=== PATIENT | male | born 1980 | race Caucasian/White ===

== ENCOUNTER 2018-07-10 23:19 | Emergency (ER) | payer SELFPAY ==
[2018-07-11] MEDS ORDERED: LIDOCAINE 1% INJ-PF (10 MG/ML) 30 ML SDV INJ ONE (01:06)
[2018-07-11] MEDS ORDERED: LIDOCAINE 4%/TETRACAINE 0.5%/EPI 0.18% 5 ML TOPICAL SOLN TOP ONE (01:07)
[2018-07-11] MEDS ORDERED: PROMETHAZINE HCL 25 MG TABLET PO ONE (01:07)
[2018-07-11] MEDS ORDERED: OXYCODONE-ACETAMINOPHEN 5-325 MG TABLET PO ONE (01:07)
--- NOTE | 2018-07-11 01:08 | ER Document Report ---
ED Skin Rash/Insect Bite/Abscs - General Chief Complaint: Abscess Stated Complaint: ABCESS ON NECK Time Seen by Provider: 07/11/18 00:58 Notes: Patient is a 37-year-old male that comes emergency department for chief complaint of an abscess to the back of his neck on the left side. He states it started out most like a pimple, he states he will his girlfriend missed visit and that started getting worse, he states after became swollen he tried to open it with a razor blade prior to arrival but then the pain became severe and he became worried. He denies fever or chills, denies history of the same. He denies diabetes or IV drug abuse. TRAVEL OUTSIDE OF THE [place] IN LAST 30 DAYS: No - Related Data Allergies/Adverse Reactions: No Known Allergies Allergy (Unverified 07/11/18 01:17) Past Medical History - General Information source: Patient - Social History Smoking Status: Never Smoker Drug Abuse: None Lives with: Family Family History: Reviewed & Not Pertinent Surgical Hx: Negative - Immunizations Immunizations up to date: Yes Hx Diphtheria, Pertussis, Tetanus Vaccination: Yes Review of Systems - Review of Systems Constitutional: No symptoms reported EENT: No symptoms reported Cardiovascular: No symptoms reported Respiratory: No symptoms reported Gastrointestinal: No symptoms reported Genitourinary: No symptoms reported Male Genitourinary: No symptoms reported Musculoskeletal: No symptoms reported Skin: See HPI Hematologic/Lymphatic: No symptoms reported Neurological/Psychological: No symptoms reported Physical Exam - Vital signs Vitals: Temp Pulse Resp BP Pulse Ox 97.4 F 103 H 18 134/84 H 98 07/10/18 23:29 07/10/18 23:29 07/10/18 23:29 07/10/18 23:29 07/10/18 23:29 - Notes Notes: GENERAL: Alert, interacts well. No acute distress. HEAD: Normocephalic, atraumatic. EYES: Pupils equal, round, and reactive to light. Extraocular movements intact. ENT: Oral mucosa moist, tongue midline. NECK: Full range of motion. Supple. Trachea midline. LUNGS: Clear to auscultation bilaterally, no wheezes, rales, or rhonchi. No respiratory distress. HEART: Regular rate and rhythm. No murmur ABDOMEN: Soft, non-tender. Non-distended. Bowel sounds present in all 4 quadrants. EXTREMITIES: Moves all 4 extremities spontaneously. No edema, normal radial and dorsalis pedis pulses bilaterally. No cyanosis. BACK: no cervical, thoracic, lumbar midline tenderness. No saddle anesthesia, normal distal neurovascular exam. NEUROLOGICAL: Alert and oriented x3. Normal speech. [cranial nerves II through XII grossly intact]. PSYCH: Normal affect, normal mood. SKIN: Warm, dry, normal turgor. There is an abscess noted over the posterior neck on the left side at the base of the neck, this is indurated, fluctuant, has a wound with some drainage coming out of in the center, there is some surrounding erythema. No nearby lymphadenopathy. Otherwise unremarkable skin exam. Course - Re-evaluation Re-evalutation: Abscess was cleaned, drained, had to perform 2 incisions because there were 2 heads over the area, there is some surrounding cellulitis. Otherwise unremarkable exam. No fever. Patient will be placed on antibiotics because of the surrounding cellulitis, discussed and his care, follow-up, and return precautions. Patient states understanding and agreement. - Vital Signs Vital signs: Temp Pulse Resp BP Pulse Ox 99.5 F 100 18 114/65 97 07/11/18 02:28 07/11/18 02:28 07/11/18 02:28 07/11/18 02:28 07/11/18 02:28 Procedures - Incision and Drainage Left posterior neck Type: Multiple Anesthetic type: Other - l.e.t. Blade size: 11 I&D procedure: Shurclens applied, Sterile dressing applied Incision Method: Incision made by scalpel Amount/type of drainage: Moderate amount of purulent drainage from both sites, small bleeding Discharge - Discharge Clinical Impression: Cellulitis and abscess of neck Condition: Stable Disposition: HOME, SELF-CARE Additional Instructions: The abscesses have been drained, keep clean, clean with soap and water, apply absorbent dressing over the area. Take Keflex and Bactrim antibiotics. This should resolve with time. Follow-up with primary care. Return if you worsen including spreading redness, fever 100.4 greater, or any other concerning symptoms. Prescriptions: Cephalexin Monohydrate [Keflex 500 mg Capsule] 500 mg PO Q6H 4 Days #16 capsule Cephalexin Monohydrate [Keflex 500 mg Capsule] 500 mg PO QID #12 capsule Sulfamethoxazole/Trimethoprim [Bactrim Ds Tablet] 1 each PO BID #6 tablet Sulfamethoxazole/Trimethoprim [Bactrim Ds Tablet] 1 each PO BID #8 tablet Forms: Return to Work
[2018-07-11 02:29] VITALS: BP 114/65
== END 2018-07-11 03:08 | disposition home or self-care (01) ==
LOC: ER 23:19
PROC: 0H94XZZ Drainage of Neck Skin, External Approach (ICD-10-PCS; principal; 2018-07-10)
DX: L02.11 Cutaneous abscess of neck (principal)
CPT/HCPCS: 99283; 10060; J3490